=== PATIENT | female | born 1975 | race Caucasian/White ===

== ENCOUNTER 2017-12-02 09:48 | Day surgery (SDC) | payer BC ==
--- NOTE | 2017-12-02 09:50 | CP.SDSHP ---
Same Day Surgery H & P - History Proposed Procedure: fistulotomy - Allergies Allergies: Allergies No Known Allergies Allergy (Verified 11/29/17 11:11) - Date & Time Date: 12/02/17 Time: 09:49 Short Stay Discharge - Short Stay Discharge Admitting Diagnosis/Reason for Visit: ANAL FISTULA / RECTAL ABSCESS Disposition: HOME/ ROUTINE
[2017-12-02] MEDS ORDERED: Lidocaine/Epinephrine 1% 1:100000 10 ML IJ ONE (10:39)
[2017-12-02] MEDS ORDERED: ceFAZolin 1 gm in NS 0 GM/0 ML BAG IVPB ONE (10:39)
[2017-12-02] MEDS ORDERED: Bupivacaine HCl 0.5% PF (30 ml) Inj IJ ONE (10:41)
[2017-12-02] MEDS ORDERED: Midazolam 2 MG/2 ML VIAL ONE (11:14)
[2017-12-02] MEDS ORDERED: Propofol 10 mg/ml Inj (20 ML) ONE (11:15)
[2017-12-02] MEDS ORDERED: Ciprofloxacin 400mg/200ml D5W 400 MG/200 ML BAG IVPB ONE (11:25)
--- NOTE | 2017-12-02 11:56 | PCM.SURG1 ---
Surgeon's Initial Post Op Note - Surgeon's Notes Surgeon: Dr. Hall Numerical Control Tool Programmer: Krista Massey, PGY-1 Pre-Operative Diagnosis: Anal fistula, abscess Operative Findings: See op report Post-Operative Diagnosis: Anal fistula, external hemorroids Operation Performed: Fistulotomy and excision of external hemorroids Specimen/Specimens Removed: Fistula tract & hemorroid, external hemorroid Estimated Blood Loss: EBL {In ML}: 5 Blood Products Given: N/A Drains Used: No Drains Post-Op Condition: Good Date of Surgery/Procedure: 12/02/17 Time of Surgery/Procedure: 11:55
[2017-12-02] MEDS ORDERED: HYDROmorphone 0.5 mg/0.5 ml ISec IVP PRN (12:13)
[2017-12-02] MEDS ORDERED: Lactated Ringer's 1,000 ML IV SCH (12:15)
[2017-12-02 13:26] VITALS: O2SAT 100
[2017-12-02] MEDS ORDERED: Lidocaine 2% Jelly (30 ml) TOP ONE (15:34)
[2017-12-02 16:09] VITALS: BP 115/60; PULSE 61; RESP 18; TEMP 97.7
--- NOTE | 2017-12-05 06:26 | OP ---
PROCEDURE DATE: 12/02/2017. PREOPERATIVE DIAGNOSES: Anal fistula, internal and external hemorrhoids. POSTOPERATIVE DIAGNOSES: Anal fistula, internal and external hemorrhoids. PROCEDURE: Anal fistulotomy with internal and external hemorrhoids. SURGEON: Magalys Hall MD. PORCELAIN TURNER: Krista Pantoja. INDICATIONS: This is a 42-year-old who presented with anal discharge, pain and external skin tag. On exam, she was found to have internal hemorrhoids and a posterior anal fistula. The procedure discussed with her was possible revision of a superficial portion of the sphincter complex and possible risks. Informed consent was obtained. FINDINGS: There was a posterior anal fistula upon probing from the external opening, extended towards the midline and to dentate line superficial portion of the internal and external sphincter complex. There was an external hemorrhoid in that location as well as internal hemorrhoids. DESCRIPTION OF PROCEDURE: After satisfactory general anesthesia, the patient in the lithotomy position, the surgical area was prepped and draped in usual fashion. With the Hill-Deng retractor in place, the above findings were noted. The fistula probe was passed from external opening as mentioned went through dentate midline through a portion of internal sphincter muscle which was opened. Then, the external hemorrhoid with internal hemorrhoids were excised and closed with 2-0 chromic to control bleeding from the hemorrhoidectomy site and the remainder of the fistula site was left open after controlling hemostasis. The perianal tissue was initially infiltrated with lidocaine 1% with epinephrine about 3 mL, then with Marcaine 0.5% about 3 mL. Surgicel was applied to the area and the patient was transferred to recovery room in stable condition. Magalys Hall MD
== END 2017-12-02 16:15 | disposition home or self-care (01) ==
LOC: C.SDS 09:48
PROVIDERS: ATTEND Colon & Rectal Surgery
DX: K60.3 Anal fistula (principal); Z87.11 Personal history of peptic ulcer disease; I10 Essential (primary) hypertension; R19.7 Diarrhea, unspecified; K64.4 Residual hemorrhoidal skin tags; K64.8 Other hemorrhoids
CPT/HCPCS: 46255; 46275; 88304; J0744; J2250; J2704; J3010